=== PATIENT | male | born 1955 | race African-American/Black ===

== ENCOUNTER 2018-03-07 03:37 | Emergency (ER) | payer OTHER ==
[~2018-03-07] VITALS: Ht 170.2 cm; Wt 84.1 kg
[2018-03-07] MEDS ORDERED: ASPIRINCHW 81MG PO (03:50)
[2018-03-07] MEDS ORDERED: SYNTHROID100 MCG PO (03:50)
[2018-03-07] MEDS ORDERED: LOPRESSOR50 M1 PO (03:50)
[2018-03-07] MEDS ORDERED: ENALAPRIL20 MG PO (03:50)
[2018-03-07] MEDS ORDERED: HYDROCHLOROT25 MG PO (03:51)
[2018-03-07] MEDS ORDERED: BENZTROPINE0.5 MG PO (03:52)
[2018-03-07 04:04] LABS: HEMATOCRIT 34.4 % (39.0-50.0); HEMOGLOBIN 11.1 g/dl (14.0-18.0); IMMATURE GRANULOCYTES 0.3 % (0.0-5.0); MEAN CELL VOLUME 88.7 fL CALC (80.0-100.0); MEAN CORPUSCULAR HGB 28.6 pG CALC (26.0-32.0); MEAN CORPUSCULAR HGB CONC 32.3 g/L CALC (32.0-36.0); NEUT# 2.22 thou/uL (1.82-7.42); RED BLOOD COUNT 3.88 mill/uL (4.70-6.10); RED CELL DISTRI WIDTH 11.7 % (11.5-15.5)
[2018-03-07 05:00] LABS: ALBUMIN 3.8 g/dL (3.2-5.0); ALKALINE PHOSPHATASE 79 u/l (38-126); AMYLASE 88 u/l (30-110); ANION GAP 11 (6-22 (CALC)); BILIRUBIN, TOTAL 0.5 mg/dL (0.0-1.4); BUN 15 mg/dL (8-23); BUN/CREATININE RATIO 15 (12-20 (CALC)); CARBON DIOXIDE 28 mmol/l (22-30); CHLORIDE 107 mmol/l (95-108); GFR > 60 ML/MIN (>=60 (CALC)); GFR FOR AFR.AMER. > 60 ML/MIN (>=60 (CALC)); LIPASE 223 u/l (23-300); POTASSIUM 4.2 mmol/l (3.5-5.1); SGOT/AST 26 u/l (19-48); SODIUM 142 mmol/l (137-146); TOTAL PROTEIN 7.2 g/dL (6.3-8.2)
[2018-03-07 05:12] LABS: MYOGLOBIN 36 ng/mL (0 - 121)
[2018-03-07] MEDS ORDERED: PEPCID40 MG PO (05:20)
[2018-03-07] MEDS ORDERED: TORADOL PO (05:20)
[2018-03-07 05:45] VITALS: BP 132/73
== END 2018-03-07 05:45 | disposition designated cancer center or children's hospital (05) | DRG 392 ==
LOC: ED 03:37
PROVIDERS: Family Medicine
DX: K21.9 Gastro-esophageal reflux disease without esophagitis (principal); M94.0 Chondrocostal junction syndrome [Tietze]; R00.1 Bradycardia, unspecified; I10 Essential (primary) hypertension; R05 Cough